=== PATIENT | male | born 1945 | race Caucasian/White ===

== ENCOUNTER 2021-08-01 17:44 | Emergency (ER) | payer MEDICARE, BC, SELFPAY ==
[2021-08-01 18:01] VITALS: BP 136/88; PULSE 100; RESP 20; TEMP 36.7; O2SAT 96; BMI 27.1
[2021-08-01 18:12] VITALS: BP 129/88; PULSE 96; RESP 16; O2SAT 96
--- NOTE | 2021-08-01 18:13 | ED_ITS ---
HPI - Back Pain/Injury General: Chief Complaint: Back Pain/Injury Stated Complaint: L LOWER BACK & LEG PAIN Time Seen by Provider: 08/01/21 18:13 History of Present Illness: HPI Narrative: 76-year-old male patient comes in with some low back pain. Patient reports about 3 weeks ago he was working on a kitchen sink and was laying across the bridge of the cabinet in order to fix the sink. Did not report much discomfort directly after it but over a couple of days he had worsening pain and discomfort. Patient was seen by his primary care provider, Dr. Ramirez, and was treated with a steroid injection and some muscle relaxers. Patient reports persistent and worsening pain of his low back with no relief. Patient appears well. Patient appears no acute distress. Patient denies any loss of bowel or bladder function. Patient does state the medication does make him use the bathroom more, and he has increased dry mouth. Review of Systems General: Reports: 10 or more systems reviewed and unremarkable except in HPI and below Musc: Reports: back pain Physical Exam Const: COMMON NORMALS: no acute distress and patient oriented x3 GENERAL APPEARANCE: cooperative HENMT: COMMON NORMALS: normocephalic and Normal external nose present HEAD & SCALP: normal to inspection and normocephalic NOSE: Normal external nose present MOUTH: Normal oral and palatal mucosa present Eye: GENERAL EYE: appearance normal, both eyes and all related structures Neck/C-Spine: COMMON NORMALS: full ROM Chest: COMMONS NORMALS: normal inspection of the chest Resp: COMMON NORMALS: normal respiratory effort EFFORT & INSPECTION: Yes able to speak in complete sentences Cardio: COMMON NORMALS: regular rate and regular rhythm RATE: regular rate RHYTHM: regular rhythm GI: COMMON NORMALS: non-tender : COMMON NORMALS: Yes no CVA tenderness BLADDER/KIDNEY EXAM: Yes no CVA tenderness Back/Pelvis: COMMON NORMALS: no CVA tenderness THORACIC SPINE/UPPER BACK: Yes normal to inspection LUMBAR SPINE/LOWER BACK: Yes paraspinal muscle tenderness and Yes paraspinal muscle spasm Extremity: COMMON NORMALS: normal to inspection Neuro: COMMON NORMALS: patient oriented x3 and moves all extremities Psych: COMMON NORMALS: mental status grossly normal and cooperative Skin: COMMON NORMALS: no rashes or lesions noted GENERAL SKIN EXAM: no rashes or lesions noted Course Vital Signs: Vital signs: Vital Signs Temperature 98.1 F 08/01/21 18:01 Pulse Rate 96 08/01/21 18:12 Respiratory Rate 16 08/01/21 18:12 Blood Pressure 129/88 08/01/21 18:12 Pulse Oximetry 96 08/01/21 18:12 MDM - Back Pain/Injury MDM Narrative: Medical decision making narrative: Patient comes in today for complaints of low back discomfort with some sciatic symptoms going down her is left leg to the knee. On exam patient appears well. Patient appears in mild to moderate pain. Skin is warm and dry. Vital signs are normal. Differential diagnosis includes intervertebral disc disease, facet arthropathy, spinal fracture. CT of the lumbar spine indicated some bulging disks with some mild to moderate foraminal stenosis. Reviewed exam with patient recommended follow-up with orthopedic spine for further treatment and evaluation. Patient was e ncouraged to maintain normal activity as much as possible. Recommended not any heavy lifting or straining to the left. I recommend the patient stop the cyclobenzaprine and the tramadol due to risk of side effects in his age group. Patient was written a short prescription of hydrocodone with acetaminophen to help with his pain. Patient was also recommended use Tylenol or ibuprofen for further pain control. Encourage plenty of fluids and follow-up with primary care or orthopedic spine for further treatment. Review of the record noted the tramadol but we recommended patient stop that medication. No other recent narcotic prescriptions were noted on review of the record. Discharge Plan Discharge Patient Disposition: Home Clinical Impression: Intervertebral disc disease Condition: Stable Prescriptions: New hydrocodone-acetaminophen 5-325 mg tablet 1 tab PO Q6H PRN (Reason: pain) Qty: 20 RF: 0 Discharge Orders: Discharge ED (Routine); Ordered 08/01/21 Ordered By: Nick Domingo Referrals: Eleanor Ramirez DO [Primary Care Provider] - Discharge Diet: Usual diet Discharge Activity: Increase activity as tolerated Patient Instructions: Degenerative Disc Disease (ED), Opioid Safety Activity Restrictions/Additional Instructions: Stop cyclobenzaprine and tramadol. Use hydrocodone as needed for severe pain. Use Tylenol or ibuprofen as directed on the bottle for control of pain. Drink plenty of water. Maintain activity as tolerated. I have placed a referral in with case management who will contact you tomorrow regarding an appointment follow-up with orthopedic insurance claims specialist Dr. Nassar. Return to the ER as needed for worsening symptoms or new concerns. Follow-up with primary care as needed. Coding Level of Care Code ED Head Of Stock for Chg Fwd Exam Comprehensive
--- NOTE | 2021-08-01 18:21 | CTR_ITS ---
PROCEDURE INFORMATION: Exam: CT Lumbar Spine Without Contrast Exam date and time: 08/01/2021 6:21 PM Age: 76 years old Clinical indication: Low back pain; Prior surgery; Surgery type: Gb, low back; Patient HX: Pain radiates to left leg; Additional info: Low back pain, injury TECHNIQUE: Imaging protocol: Computed tomography images of the lumbar spine without contrast. Radiation optimization: All CT scans at this facility use at least one of these dose optimization techniques: automated exposure control; mA and/or kV adjustment per patient size (includes targeted exams where dose is matched to clinical indication); or iterative reconstruction. COMPARISON: No relevant prior studies available. RADIATION DOSE METRICS: Total DLP (mGy-cm): 2418.44 FINDINGS: Vertebrae: L5/S1 productive degenerative endplate changes resulting in moderate bilateral foraminal narrowing. L1-L2: No significant disc protrusion. No severe spinal canal stenosis. No significant neural foraminal narrowing. L2-L3: L2-L3 broad-based disc bulge with mild bilateral foraminal narrowing. L3-L4: No significant disc protrusion. No severe spinal canal stenosis. No significant neural foraminal narrowing. L4-L5: L4-L5 broad-based disc bulge with mild spinal canal and moderate bilateral foraminal narrowing. L5-S1: No significant disc protrusion. No severe spinal canal stenosis. No significant neural foraminal narrowing. Soft tissues: Diverticulosis without diverticulitis. CT/CT lumbar spine wo con* [id number] IMPRESSION: 1. L2-L3 broad-based disc bulge with mild bilateral foraminal narrowing. 2. L4-L5 broad-based disc bulge with mild spinal canal and moderate bilateral foraminal narrowing. 3. L5/S1 productive degenerative endplate changes resulting in moderate bilateral foraminal narrowing. Radiation Dose CTDIVOL = (mGy): DLP = 2418.44 (mGy-cm)
[2021-08-01] MEDS: HYDROcodone-acetaminophen 7.5-325 mg Tablet 1 TAB PO (18:32)
--- NOTE | 2021-08-02 11:27 | DCPLANNER ---
fleet maintenance manager had message to schedule a follow up appointment for patient with ortho. fleet maintenance manager called the ortho clinic, spoke with Taya, gave clinic patients information. fleet maintenance manager was told that patients information would be printed and reviewed. Clinic will call patient with appointment information.
--- NOTE | 2021-08-03 10:41 | DCPLANNER ---
Patient has a follow up appointment scheduled for Monday, August 09, 2021 at 9:30 with Deacon Grigsby at [facility]. Clinic will call patient with appointment information.
--- NOTE | 2021-08-26 09:20 | DCPLANNER ---
Patient had a follow up appointment scheduled for 08.09.21 with ANGEL Grigsby at [facility] - patient did attend appointment.
== END 2021-08-01 19:08 | disposition home or self-care (01) ==
PROVIDERS: Emergency Provider Nurse Practitioner Family; PCP Family Medicine
DX: M51.86 Other intervertebral disc disorders, lumbar region (principal)
CPT/HCPCS: 72131; 99283

== ENCOUNTER → 2021-08-09 09:37 | Outpatient (BNVA) | payer MEDICARE, BC, SELFPAY | PROVIDERS: PCP Family Medicine; Referring Provider Nurse Practitioner Family; Visit Provider Physician Assistant | DX: M51.36 Other intervertebral disc degeneration, lumbar region (principal); M47.816 Spondylosis without myelopathy or radiculopathy, lumbar region | CPT/HCPCS: 72110 ==

== ENCOUNTER → 2022-04-20 09:40 | Outpatient (BNVA) | payer MEDICARE, BC, SELFPAY | PROVIDERS: PCP Family Medicine; Referring Provider Nurse Practitioner Family; Visit Provider Podiatrist Foot & Ankle Surgery | DX: L60.0 Ingrowing nail (principal) | CPT/HCPCS: 99203 ==

== ENCOUNTER → 2025-08-10 13:58 | Outpatient (BNVA) | payer MEDICARE, SELFPAY | PROVIDERS: PCP Family Medicine; Referring Provider Family Medicine; Visit Provider Internal Medicine | DX: J47.9 Bronchiectasis, uncomplicated (principal); J85.0 Gangrene and necrosis of lung; Z87.891 Personal history of nicotine dependence; J44.9 Chronic obstructive pulmonary disease, unspecified; J84.10 Pulmonary fibrosis, unspecified | CPT/HCPCS: 99204; Q3014 ==